=== PATIENT | male | born 1985 | race Two or more races ===

== ENCOUNTER 2024-08-09 07:25 | Day surgery (SDC) | payer BC, SELFPAY ==
[2024-08-08 11:21] VITALS: BMI 28.3
[2024-08-09] VITALS (9 sets, daily range): BP systolic 114–135; BP diastolic 80–90; PULSE 85–103; RESP 12–22; TEMP 36.5–36.7; O2SAT 96–100; BMI 28.8
[2024-08-09] MEDS: DiphenhydrAMINE INJ 50 MG/ML VIAL 25 MG IV (09:36)
[2024-08-09] MEDS: fentaNYL CIT INJ 50 mCg/ML AMP 2ML (ASD USE ONLY) IV (09:36)
[2024-08-09] MEDS: MIDAZOLAM INJ 1 MG/ML VIAL 2 ML (ASD USE ONLY) 2 MG IV (09:39)
--- NOTE | 2024-08-09 10:50 | SUR.PHASEII ---
0947: Pt received for recovery. Report from Nicole CASEY. Pt groggy, but responsive with eye opening then drifts back to sleep. Resp even, unlabored. VS stable. No c/o pain, discomfort. 1010: Pt more awake. VS stable. Denies pain. Sitting up tolerating po fluids with no difficulty swallowing and no n/v. 1034: Pt fully awake, oriented x3. Pt was assisted to restroom. Ambulation steady. Pt and stated understanding of discharge instructions. Pt discharged from [facility] in stable condition.
== END 2024-08-09 10:34 | disposition home or self-care (01) ==
PROVIDERS: PCP Internal Medicine; Referring Provider Internal Medicine; Visit Provider Specialist
PROC: 0DBE8ZX Excision of Large Intestine, Via Natural or Artificial Opening Endoscopic, Diagnostic (ICD-10-PCS; CPT 45380; principal; 2024-08-09 11:45)
DX: K64.9 Unspecified hemorrhoids (principal); K57.30 Diverticulosis of large intestine without perforation or abscess without bleeding
CPT/HCPCS: 45378; J1200; J2250; J3010

== ENCOUNTER → 2025-06-29 | Outpatient (CLI) | payer BC, SELFPAY ==
--- NOTE | 2025-06-29 09:05 | XR_ITS ---
Examination: Knee, left, 3 views Technique: Knee AP, lateral, oblique 3 views Date and time of exam: 06/29/2025 at 9:12 a.m. INDICATION: Left knee pain, injury on June 15, 2025. History of ACL repair several years ago. COMPARISON: Left knee radiographs 02/28/2018 FINDINGS: No fracture or subluxation. Moderate suprapatellar joint effusion noted. There appears to be mild edema or fibrosis in the infrapatellar fat pad. No significant joint space narrowing. Internal sequela of ACL reconstruction noted. Small well-corticated osseous fragment is present along the superior margin of the medial tibial eminence. IMPRESSION: Moderate joint effusion but no evidence for acute fracture or subluxation. Sequela of ACL reconstruction now seen. No significant joint space narrowing.
--- NOTE | 2025-06-29 09:05 | XR_ITS ---
Examination: Foot, left, 3 views Technique: AP, oblique, lateral views foot, 3 views Date and time of exam: 06/29/2025 at 9:16 a.m. INDICATION: Left foot pain COMPARISON: None FINDINGS: Intact osseous structures of the left foot. No fracture or lytic changes. No dislocation. Moderate hallux valgus noted, measuring approximately 30 degrees. Suggestion of soft tissue swelling on the medial side of the forefoot including over the first MTP. Mild chronic bony penetration identified at the dorsal aspect of the navicular bone. Minimal posterior calcaneal enthesophyte formation is present. Otherwise, no evidence for osteoarthrosis. 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 No emphysema or radiodense foreign body. IMPRESSION: Negative left foot radiographs for acute osseous abnormality. Moderate hallux valgus. Suggestion of soft tissue swelling on the medial side of the forefoot including over the first MTP.
== END | disposition home or self-care (01) ==
LOC: CDIM 08:58
PROVIDERS: PCP Internal Medicine; Referring Provider Internal Medicine; Visit Provider Internal Medicine
DX: M20.12 Hallux valgus (acquired), left foot (principal); M25.475 Effusion, left foot; M25.462 Effusion, left knee; S89.92XA Unspecified injury of left lower leg, initial encounter; S99.922A Unspecified injury of left foot, initial encounter; X58.XXXA Exposure to other specified factors, initial encounter
CPT/HCPCS: 73562; 73630